=== PATIENT | female | born 1990 | race African-American/Black ===

== ENCOUNTER 2019-11-15 02:43 | Emergency (ER) | payer SELFPAY ==
[~2019-11-15] VITALS: Ht 157.5 cm; Wt 52.0 kg
[2019-11-15] MEDS ORDERED: SODIUM CHLORIDE 0.9% 1,000 ML IV ONE (03:30)
[2019-11-15] MEDS ORDERED: IBUPROFEN 600MG TABLET PO ONE (03:45)
[2019-11-15 03:54] LABS: CLARITY URINE CLEAR (CLEAR); COLOR URINE DARK YELLOW (YELLOW); KETONES URINE TRACE (NEGATIVE); LEUKOCYTE ESTERASE URINE 1+ (NEGATIVE); NITRITE URINE NEGATIVE (NEGATIVE); OCCULT BLOOD URINE NEGATIVE (NEGATIVE); PROTEIN URINE 1+ (NEGATIVE); SPECIFIC GRAVITY URINE 1.041 (1.005-1.030)
[2019-11-15 04:08] VITALS: BP 100/72
[2019-11-15 04:09] LABS: *BARBITURATES SCREEN URINE NEGATIVE (NEGATIVE)
[2019-11-15 04:10] LABS: *COCAINE SCREEN URINE NEGATIVE (NEGATIVE); METHADONE URINE SCREEN NEGATIVE (NEGATIVE); OPIATES URINE SCREEN NEGATIVE (NEGATIVE); PHENCYCLIDINE URINE SCREEN NEGATIVE (NEGATIVE)
[2019-11-15 04:11] LABS: CANNABINOID URINE SCREEN NEGATIVE (NEGATIVE)
[2019-11-15 04:12] LABS: *AMPHETAMINES SCREEN URINE PRESUMTIVE POSITIVE (NEGATIVE); *BENZODIAZEPINES SCREEN URINE PRESUMTIVE POSITIVE (NEGATIVE)
== END 2019-11-15 04:00 | disposition left against medical advice (07) ==
LOC: ER 03:04
DX: N89.8 Other specified noninflammatory disorders of vagina (principal); F90.9 Attention-deficit hyperactivity disorder, unspecified type
CPT/HCPCS: 80305; 81003; 81025; 87086; 93005; 99284; J7030